=== PATIENT | male | born 1990 | race Caucasian/White ===

== ENCOUNTER → 2018-03-02 09:30 | Outpatient (CLI) | payer OTHER, SELFPAY ==
--- NOTE | 2018-03-02 | DI.MRI.S_ITS ---
PROCEDURE: MR KNEE LT WO CON INDICATIONS: PAIN IN LEFT KNEE TECHNIQUE: Noncontrast sagittal PD fast spin echo and T2 fast spin echo with fat saturation, sagittal 3-D FLASH with fat saturation; coronal T1 spin echo and PD fast spin echo with fat saturation, and axial PD fast spin echo with fat saturation through the knee. COMPARISON: None. FINDINGS: Image quality: Excellent. Menisci: There is a small horizontal tear involving the peripheral aspect of the posterior horn of the lateral meniscus. The medial meniscus appears normal. The meniscal root ligaments appear intact. Cruciate ligaments: There is thickening and increased signal of the anterior cruciate ligament consistent with high grade partial tear. The posterior cruciate ligament appears intact. Medial structures: The medial collateral ligament appears intact. The posterior oblique ligament, semimembranosus tendon insertions, oblique popliteal ligament, and meniscocapsular junction appear intact. Visualized portions of the pes anserinus tendons appear normal. No abnormal bursal fluid. Lateral structures: There is partial tear of the lateral collateral ligament involving the distal fibers. The biceps femoris tendon and iliotibial band appear intact. The popliteus tendon appears normal. Anterior structures: The quadriceps and patellar tendons appear intact. Patellar alignment is normal. No femoral trochlear dysplasia or ventral trochlear prominence. No edema in the infrapatellar fat pad. Bones and cartilage: Marrow edema is present in the lateral tibial plateau and the opposing lateral femoral condyle consistent with bone contusions. There is linear low signal involving the lateral tibial plateau suggesting nondisplaced fracture without depression. A small impaction injury is noted in the lateral femoral condyle. The cartilage of the medial and lateral femorotibial compartments, as well as the patellofemoral compartment, appears normal in thickness. Joint space: There is small knee joint effusion. No Anguiano's cyst. Normal appearing synovial plicae are incidentally noted. IMPRESSION: 1. High grade partial tear of anterior cruciate ligament. 2. Partial tear of lateral collateral ligament. 3. Small horizontal tear involving the peripheral aspect of the posterior horn of the lateral meniscus. 4. Bone contusions in the lateral tibial plateau and lateral femoral condyle. Nondisplaced lateral tibial plateau fracture maybe present without depression. Dictated by: Harris Lovett M.D. on 03/02/2018 at 10:10 Transcribed by: TYSHAWN on 03/02/2018 at 10:32 Approved by: Harris Lovett M.D. on 03/02/2018 at 13:43
== END ==
PROVIDERS: Visit Provider General Practice
DX: S83.512A Sprain of anterior cruciate ligament of left knee, initial encounter (principal); S83.282A Other tear of lateral meniscus, current injury, left knee, initial encounter; S83.422A Sprain of lateral collateral ligament of left knee, initial encounter; M25.562 Pain in left knee; S80.02XA Contusion of left knee, initial encounter
CPT/HCPCS: 73721

== ENCOUNTER → 2021-06-05 09:05 | Outpatient (CLI) | payer OTHER, SELFPAY | PROVIDERS: Referring Provider Urology; Visit Provider Urology | DX: N50.89 Other specified disorders of the male genital organs (principal); N50.811 Right testicular pain | CPT/HCPCS: 36415; 82105; 84702; 99215 ==

== ENCOUNTER → 2021-06-10 08:14 | Outpatient (CLI) | payer OTHER, SELFPAY ==
[2021-06-10 08:39] LABS: COVID19 -Nasal RAPID Negative (Negative)
== END ==
PROVIDERS: Visit Provider Urology
DX: Z20.822 Contact with and (suspected) exposure to COVID-19 (principal)
CPT/HCPCS: 87635; C9803

== ENCOUNTER 2021-06-11 07:37 | Day surgery (SDC) | payer OTHER, SELFPAY ==
[2021-06-11] VITALS (22 sets, daily range): BP systolic 113–168; BP diastolic 53–98; PULSE 89–126; RESP 9–909; TEMP 36.3–37.1; O2SAT 2–100; BMI 22.9
--- NOTE | 2021-06-11 | PATH_ITS ---
[facility] Accession Number: [id number] No. of containers..01 Tissue . 01 Material submitted: . testis - RIGHT TESTICLE AND CORD . 02 Diagnosis: Right Testicle and Cord, Radical Orchiectomy: Non-seminomatous germ cell tumor; please see comment. Immunohistochemistry studies pending for further characterization; results will be reported as an addendum. [facility] 06/16/2021 1342 Local . 02 Comment: The tumor consists predominantly of embryonal carcinoma. There are a few scattered foci with histologic features concerning for possible yolk sac differentiation. Immunohistochemistry studies for further characterization are pending; those results and a complete case summary report will be submitted as an addendum. . As part of routine quality control director, this case was also reviewed by Dr. Gonzalez, who agrees with this interpretation. . Results discussed with Dr. Lewis on 06-16-21 at approximately 1:47 p.m. . 02 Electronically signed: . Shanice Lo MD, Pathologist NPI- [id number] . 01 Gross description: . Received in formalin, labeled with the patient's name and additionally labeled right testicle and cord, is a testis measuring 6.0 x 4.0 x 2.8 cm with an attached cord measuring 10.5 cm in length and ranging in diameter from 0.9 to 2.0 cm. The tunica is cortés-mi with areas of cautery and freely moves over the testis. The tunica is inked black and the cord margin inked blue. There is a prominent nodule of adipose tissue measuring 2.8 x 1.1 x 0.8 cm located 1.3 cm from the cord margin, suggestive of cord lipoma. The testis is bivalved revealing a variegated hemorrhagic multinodular mass measuring 2.1 x 1.5 x 1.5 cm in the inferior aspect of the specimen. The mass appears to approximate the epididymis/rete testis. The mass is free of the cord margin by 11.5 cm, and appears free of the tunica by 0.2 cm. [employer] sections are submitted as follows: . Cassette A1: Blue-inked cord margin and ductus deferens margin. Cassettes A2-A4: Mass. Cassette A5: Epididymis and unremarkable testicular parenchyma. Cassettes A6-A7: Cross-sections of unremarkable cord. Cassette A8: Cord lipoma, bisected. (MS:[id number]) /MRV 06/12/2021 1245 Local . 02 Pathologist provided ICD-10: C62.91 . 02 CPT . 160782 Specimen Comment: A courtesy copy of this report has been sent to [phone] Performed at: 01 [facility] Cyt[facility] [address] [address], [place], [place] [id number] MD Joseph Roberts MD Phone: [phone] Performed at: 02 [facility] [id number] [address] [place] [id number] MD Gissell Gonzalez MD Phone: [phone]
[2021-06-11] MEDS: LACTATED RINGERS 1,000 ML 42 ML IV (08:18)
[2021-06-11] MEDS: ACETAMINOPHEN 325 MG TABLET 975 MG PO (08:21)
--- NOTE | 2021-06-11 08:47 | PM.PREOP ---
Pre-operative Note COVID-19 COVID-19 status: Negative Result date/Date tested (Pos, Neg/Pending): 06/10/21 Criteria for continued procedure: Expected advancement of disease process, Possibility delay results in more complex future surgery or treatment, Delay expected to result in less-positive ultimate med/surg outcome and Non-surgical alternatives not available or appropriate per current SOC Interval Note History & Physical reviewed/Exam performed by Physician: Yes Changes to H&P: No
--- NOTE | 2021-06-11 09:23 | SUR.OPER ---
Supine on padded OR bed, head on pillow, arms secured on padded arm boards at <90 degrees abduction, legs uncrossed, safety belt at thigh, tape over blanket over lower legs.
[2021-06-11] MEDS: CEFAZOLIN 2 GM/20 ML SYRINGE IV (09:35)
[2021-06-11] MEDS: BUPIVACAINE 0.25% (PF) VIAL 30 ML INJ (09:36)
--- NOTE | 2021-06-11 10:31 | P.OP_ITS ---
Procedure & Clinicians Procedure: Right radical orchiectomy Same procedure as scheduled: Yes Indications: This is a very pleasant 31-year-old male who had an episode of testicular pain noticed some hardness in his testicle on the right side a couple months ago. He had a repeat episode and had an ultrasound which showed a mass in the lower pole of the testicle consistent with testicular malignancy. This was confirmed by exam and the patient patient presents at this time for right radical orchiectomy. His tumor markers are pending at this dictation. Surgeon: Feliciano Lewis Click Yes if Unassisted: Yes Anesthesia Type: General Operative Notes Findings: In the lower pole of the right testis was a palpably abnormal hard 1.8 cm lesion which was irregular. At surgery this was not observed as we attempted to keep the fascial layers intact. And by not observed I made it was not opened. It was palpably present. No adenopathy or other abnormality was noted there appeared to be no extension into the corner surrounding tissues. Closure Type: primary Specimen(s): other (Right cord and testicle in toto) Prosthetic devices, grafts, tissues, transplants, or devices: None Estimated Blood Loss (mL): 5 Blood products transfused: none Procedure in detail: After informed consent was obtained, patient was identified and brought to the operating room. The patient was then placed in a supine position on the table, where anesthesia was induced and maintained. With an adequate level of anesthesia the patient was Shaved, prepped and draped in a sterile fashion for right radical orchiectomy. After prepping draping and ensuring an adequate level of anesthesia a right inguinal incision was made and the dissection desiree ed down onto the fascial planes of the abdomen and external ring. Which of bleeding were controlled with electrocautery. The cord was identified and dissected free circumferentially just distal to the internal ring the external ring. With this dissected free a quarter-inch [place] was passed around the cord twice tightened and secured. Thus The us occluding the cord structures. Attention was then turned to the testes which was brought up and into the wound. The gubernaculum was divided using electrocautery taking care to avoid the scrotal skin. The cord attachments were then divided with sharp and electrocautery dissection. The fascia over the ring was then sharply incised with a scalpel. And the fibers were opened along their length. The ink ileum will nerve was identified and excluded from the dissection. The cord was then dissected free to the internal ring. The vas was dissected away from the rest of the cord structures and clamped with a hemostat. It was divided with electrocautery. It was then tied off with a 2-0 silk. The remainder of the cord was then clamped at the level of the internal ring with a Crile clamp. And then more distally with a 2nd clamp the cord was then divided between the clamps. The cord was then ligated with a suture ligature of 2-0 silk. Hemostasis was good the cord was then infiltrated with 0.25% plain Marcaine. The testis and cord were then passed off the table to be put placed in formalin and sent to pathology. Attention was then turned to closure. The wound was then irrigated with sterile water. The fascia was reapproximated with a running 3-0 PDS. The channel was then infiltrated with 0.25% Marcaine. A the wound was once again irrigated and the Saeed's fascia was then reapproximated a running 2 0 Vicryl the subcutaneous fat was then reapproximated with a running 2-0 Vicryl skin edges reapproximated with running subcuticular of 4-0 Monocryl. The wound skin edges were then infiltrated with 0.25% Marcaine Mastisol Steri-Strips were applied followed by Telfa and eye patch and Tegaderm. The patient was then awakened taken to the postanesthesia care unit having tolerated the procedure well patient to follow-up in my office in approximately 7-10 days. Again the patient tolerated the procedure well and there were no complications. Complications: none Post-operative Condition: stable Plan for aftercare: Discharged to home with follow-up in my office.
--- NOTE | 2021-06-11 10:41 | SUR.PHASEI ---
1027 hrs: Pt arrives PACU with OPA in place. Report from Mary and Dr Bell. Jaw thrust applied for snoring respirations.
[2021-06-11] MEDS: OXYCODONE IR 5 MG TABLET PO (10:58)
[2021-06-11] MEDS: LACTATED RINGERS 1,000 ML 120 ML IV (11:01)
[2021-06-11] MEDS: LABETALOL 20 MG/4 ML SYRINGE 5 MG IV (11:37)
--- NOTE | 2021-06-11 11:37 | SUR.PREOP ---
1037 resp - unable to edit. Actual rate is 18 1041 resp - unable to edit. Actual rate is 16
--- NOTE | 2021-06-11 13:07 | SUR.PHASEII ---
Spoke with Dr Rosa in OR #1. Informed of patient with slight nausea, history of car sickness, and slightly dizzy when up, sitting, standing. Now resting, lying in bed. Breathing easily. No IV access. See new order.
[2021-06-11] MEDS: ONDANSETRON 4 MG ODT SL (13:15)
--- NOTE | 2021-06-11 13:36 | SUR.PHASEI ---
pt. was given zofran at 1315, with good effect. Still continues to feeling slightly dizzy and hungry. Courtney cristina and crackers were offered and tolerating well.
--- NOTE | 2021-06-11 14:19 | SUR.PHASEII ---
1355 Pt tolerated geraldine cristina and saltines. Requested to sit at the edge of bed. Pt stated still slightly dizzy but requested discharge and stated he felt ok and no nausea. Pt steady on feet to wheelchait. 1400 Patient discharge to home with friend Laura pina.
--- NOTE | 2021-06-11 14:21 | SUR.PHASEII ---
1220 SBAR report from David RN. Pt awake, alert, sitting at the edge of the bed dressed but pale and stated he felt dizzy. Pt lay back in bed. Dr Lewis at bedside to update patient on surgery. All patient care, meds and charting of Radha Rahman SN supervised by this RN.
== END 2021-06-11 14:00 | disposition home or self-care (01) ==
PROVIDERS: Referring Provider Urology; Visit Provider Urology
PROC: 0VT90ZZ Resection of Right Testis, Open Approach (ICD-10-PCS; CPT 54520; principal; 2021-06-11 08:45)
DX: C62.91 Malignant neoplasm of right testis, unspecified whether descended or undescended (principal)
CPT/HCPCS: 54520; 82962; J0690; J1100; J1170; J2250; J2405; J2704; J3010

== ENCOUNTER → 2021-06-26 08:27 | Outpatient (CLI) | payer OTHER, SELFPAY ==
--- NOTE | 2021-06-26 08:29 | DI.CT.S_ITS ---
PROCEDURE: CT CHEST ABD PEL W CON INDICATIONS: Testicular mass TECHNIQUE: After the administration of oral and intravenous contrast, axial sections acquired from the supraclavicular neck to the pubic symphysis. Coronal and sagittal reformats were performed. For radiation dose reduction, the following was used: automated exposure control, adjustment of mA and/or kV according to patient size. COMPARISON:[facility], , [place] SCROTUM, 05/26/2021, 13:29. FINDINGS: Image quality: Excellent. CHEST: Lower Neck: No enlarged lymph nodes. Thyroid: Within normal limits. Axillae: No enlarged lymph nodes. Mildly prominent axillary lymph nodes are noted bilaterally measuring 0.8 x 1.1 cm on the right and 0.7 x 0.9 cm on the left. Chest Wall: Unremarkable. Lungs and Airways: No suspicious nodules. No infiltrate or consolidation. Pleura: No pneumothorax or pleural effusions. Heart: Heart size is normal. No pericardial effusion. Thoracic Vessels: The aorta and pulmonary arteries demonstrate normal size. Mediastinum and Gela: No enlarged lymph nodes. Esophagus: No wall thickening. No hiatal hernia. ABDOMEN: Liver: Unremarkable. Gallbladder: Unremarkable. Biliary ducts: Unremarkable. Pancreas: Unremarkable. Spleen: Unremarkable. Adrenal Glands: Unremarkable. Kidneys and Ureters: Unremarkable. Stomach and Bowel: Stomach, small bowel loops, and colon are unremarkable. Peritoneum: No abnormal intraperitoneal fluid. No free air. Ventral Wall: No hernia. Abdominal Nodes: No retroperitoneal or mesenteric adenopathy by size criteria. Vessels: Aorta and inferior vena cava are normal in size. PELVIS: Pelvic Organs: Unremarkable. Bladder: Unremarkable. Pelvic Nodes: No enlarged lymph nodes. Slightly prominent right inguinal lymph node measures 0.8 x 1.3 cm. Miscellaneous: No inguinal hernias are seen. There is right orchidectomy. There is hydrocele in the right scrotum. Mild skin thickening and subcutaneous stranding right inguinal area is likely postsurgical in nature. Bones: Unremarkable. IMPRESSION: 1. No metastatic disease identified in thorax, abdomen or pelvis. 2. Slightly prominent subcentimeter lymph nodes in the right inguinal area and axillae bilaterally, indeterminate in nature but most likely reactive. Recommend clinical follow-up. 3. Right orchidectomy. Dictated by: Harris Lovett M.D. on 06/26/2021 at 12:01 Approved by: Harris Lovett M.D. on 06/26/2021 at 12:10
--- NOTE | 2021-06-26 08:29 | DI.CT.S_ITS ---
PROCEDURE: CT HEAD/BRAIN WO/W CON INDICATIONS: New diagnosis testis cancer TECHNIQUE: 4.5 mm thick angled axial sections acquired from the foramen magnum to the vertex both before and after the administration of intravenous contrast, with coronal and sagittal reformats. For radiation dose reduction, the following was used: automated exposure control, adjustment of mA and/or kV according to patient size. COMPARISON: None. FINDINGS: Image quality: Excellent. CSF spaces: Basal cisterns are patent. No extra-axial fluid collections. Ventricles are symmetric in size and shape. Brain: No midline shift. No intracranial bleeds or masses. No abnormal intracranial enhancement. There is cerebral volume loss for age. There is periventricular white matter chronic small vessel ischemic change. There is intracranial internal carotid artery atherosclerosis. There is normal postcontrast enhancement of the major central cerebral vasculature. Dural sinuses demonstrate normal postcontrast enhancement. Skull and face: Calvarium and visualized facial bones appear intact, without suspicious lesions. Sinuses: Visualized sinuses and mastoids are clear. IMPRESSION: 1. No intracranial disease process. 2. No abnormal intracranial mass or suspicious postcontrast enhancement. Dictated by: Julita Black MD, PhD on 06/26/2021 at 10:31 Approved by: Julita Black MD, PhD on 06/26/2021 at 10:34
== END ==
PROVIDERS: Referring Provider Urology; Visit Provider Urology
DX: C62.91 Malignant neoplasm of right testis, unspecified whether descended or undescended (principal); N50.811 Right testicular pain; N50.89 Other specified disorders of the male genital organs
CPT/HCPCS: 70470; 71260; 74177